=== PATIENT | male | born 1970 | race African-American/Black ===

== ENCOUNTER 2024-03-22 09:05 | Emergency (ER) | payer BC, SELFPAY ==
--- NOTE | ~2024-03-22 | XR_ITS ---
EXAMINATION: XR chest 2V DATE: 03/22/2024 09:39 INDICATION: Cough and shortness of breath TECHNIQUE: PA and lateral views of the chest were obtained. COMPARISON: None FINDINGS: Eventration of the anterior right hemidiaphragm. Mild opacities at the bilateral lower lung zones whi ch could represent atelectasis or pneumonia. No pulmonary edema, pleural effusion or pneumothorax. Th e cardiomediastinal silhouette is normal. Mild thoracic levocurvature with moderate spondylosis. IMPRESSION: 1. Mild opacities at the bilateral lung bases which could represent atelectasis or pneumonia. Reviewed, dictated and finalized at location A. [employer]
--- NOTE | 2024-03-22 09:07 | ED_ITS ---
HPI - General Adult General Chief complaint: Upper Respiratory Infection Stated complaint: chest tight,difficulty breathing @ night Time Seen by Provider: 03/22/24 09:19 Source: patient and RN notes reviewed Mode of arrival: ambulatory Limitations: no limitations History of Present Illness HPI narrative: Chief 4-year-old male presents to the [facility] with cough x2 days. Reports shortness of breath and wheezing started yesterday. Has taken Tamiflu, Tylenol. States that he did use his daughter's nebulizer machine which did help his symptoms. Patient denies any medical history or surgical history. Denies being a smoker. Onset (ago): day(s) (2) Treatments prior to arrival: other (Cold medication, Tylenol) Related Data Allergies Allergy/AdvReac Type Severity Reaction Status Date / Time No Known Allergies Allergy Verified 03/22/24 09:32 Review of Systems Review of Systems: All systems reviewed & are unremarkable except as noted in HPI and below Constitutional: Constitutional: Reports no additional constitutional complaints ENT: Reports system reviewed and no additional complaints, except as documented Cardiovascular: Cardiovascular: Reports as per HPI, Reports chest pain, Reports dyspnea and Reports orthopnea Respiratory: Respiratory: Reports as per HPI, Reports chest congestion, Reports cough, Reports excessive phlegm production, Reports dyspnea and Reports wheezing Musculoskeletal: Musculoskeletal: Reports no additional musculoskeletal complaints Integumentary/Breasts: Skin/Breast: Reports system reviewed and no additional complaints, except as docu PMFSH Past Medical History Medical History Patient denies medical problems Surgical History Surgical History No significant past surgical history Social History Social History Smoking status: Never smoker Alcohol intake: current Alcohol use details: Occasional 1-2 drinks a week Comments At the time of my signature, I reviewed and agree with the nursing past medical, surgical, social, and family history. There is no relevant family history pertinent to the patient complaint. Exam Const: General: cooperative, healthy appearing, comfortable, no acute distress, well developed, alert and well nourished Nutritional Appearance: well nourished Orientation/consciousness: patient oriented x3 Limitations: no limitations HENMT: Head: normal to inspection Ears: hearing grossly normal bilaterally, external ears normal, TM's normal bilaterally, EAC's normal, mastoids normal and no periauricular adenopathy Mouth: Yes Normal oral and palatal mucosa present, Yes lip normal, Yes tongue normal and Yes moist mucous membranes Throat: posterior oropharynx normal, tonsils normal, uvula midline, postnasal dr ainage and no uvular edema Eyes: General: appearance normal, both eyes and all related structures Alignment and Position: alignment normal Neck: Neck: normal visual inspection, full ROM, no lymphadenopathy and no meningeal signs Chest: Chest palpation & inspection: normal inspection of the chest Resp: Effort & Inspection: normal respiratory effort and able to speak in complete sentences Auscultation: crackles diffuse, no rales, no rhonchi and wheezes expiratory wheezes, inspiratory wheezes and throughout Cardio: Rate: regular rate Skin: General skin exam: normal color and no rashes or lesions noted Neuro: General: patient oriented x3, gait normal, moves all extremities and no meningeal signs Cognition (Neuro): normal cognition Speech: normal speech Gait exam (Neuro): Normal gait present Extrem: General: normal to inspection, full ROM, capillary refill normal and normal gait Psych: Appearance: grossly normal and well kempt Mental Status: mental status grossly normal Speech and movement: Normal speech and movement present and Clear speech present Affect: normal affect Attitude: cooperative Course Course Level of Care: Express Care Visit Vital Signs Vital signs: Vital Signs Temperature 97.6 F 03/22/24 09:19 Pulse Rate 70 03/22/24 09:19 Respiratory Rate 20 03/22/24 09:19 Blood Pressure 154/99 H 03/22/24 09:19 Pulse Oximetry 100 03/22/24 09:19 Oxygen Delivery Room Air 03/22/24 09:19 Temperature 97.6 F 03/22/24 09:19 Pulse Rate 70 03/22/24 09:19 Respiratory Rate 20 03/22/24 09:19 Blood Pressure 154/99 H 03/22/24 09:19 Pulse Oximetry 100 03/22/24 09:19 Oxygen Delivery Room Air 03/22/24 09:19 Reviewed Medical Decision Making MDM Narrative Medical decision making narrative: Patient sitting comfortably in exam room. Nontoxic, vitals stable. Patient in no acute distress Patient presents for 2 day history of cough, shortness of breath. Reports wheezing, chest tightness with coughing as well as some shortness of breath. Patient denies any significant medical history. Patient on arrival has cough, shortness of breath, wheezing, rhonchi hoarseness. Breathing treatment was given to patient. Patient's lungs mostly clear to auscultation except for minor rhonchi in the lower lobes. Patient is appropriate for outpatient treatment of pneumonia with antibiotics. Close follow-up. Discussed in great detail with patient signs and symptoms to the emergency room which he verbalized understanding Discharge instructions reviewed with patient, as well as provided in writing per nursing staff. The instructions also include specific and strict return/GO TO THE ER as well as f/u information. All questions have been answered, and the patient deny any further questions with discharge and discharge plan. Some parts of this dictation were generated by voice recognition software and may contain typographical and/or grammatical inaccuracies. Differential Diagnosis Differential Diagnosis: Bronchitis pneumonia, flu, COVID Medical Records Medical records reviewed: Yes I reviewed the external patient's medical records. Vital Signs Vital Signs: Vital Signs Temperature 97.6 F 03/22/24 09:19 Pulse Rate 70 03/22/24 09:19 Respiratory Rate 20 03/22/24 09:19 Blood Pressure 154/99 H 03/22/24 09:19 Pulse Oximetry 100 03/22/24 09:19 Oxygen Delivery Room Air 03/22/24 09:19 Temperature 97.6 F 03/22/24 09:19 Pulse Rate 70 03/22/24 09:19 Respiratory Rate 20 03/22/24 09:19 Blood Pressure 154/99 H 03/22/24 09:19 Pulse Oximetry 100 03/22/24 09:19 Oxygen Delivery Room Air 03/22/24 09:19 Reviewed Lab Data Lab results reviewed: Yes I reviewed the patient's lab results. Labs: Lab Results 03/22/24 Range/Units 09:30 POC Influenza A Ag Negative (Negative) POC Influenza B Ag Negative (Negative) POC SARS CoV-2 Ag Negative (Negative) Reviewed Imaging Data Radiologist's impression: EXAMINATION: XR chest 2V DATE: 03/22/2024 09:39 INDICATION: Cough and shortness of breath TECHNIQUE: PA and lateral views of the chest were obtained. COMPARISON: None FINDINGS: Eventration of the anterior right hemidiaphragm. Mild opacities at the bilateral lower lung zones which could represent atelectasis or pneumonia. No pulmonary edema, pleural effusion or pneumothorax. The cardiomediastinal silhouette is normal. Mild thoracic levocurvature with moderate spondylosis. IMPRESSION: 1. Mild opacities at the bilateral lung bases which could represent atelectasis or pneumonia. Critical Care Time Critical Care Time Critical Care Time: No Discharge Plan Discharge Clinical Impression: Pneumonia Qualifiers: Pneumonia type: due to unspecified organism Laterality: bilateral Lung location: lower lobe of lung Qualified Code(s): J18.9 - Pneumonia, unspecified organism Patient Disposition: Home, Self-Care Condition: Stable Instructions: Antibiotic Form, Pneumonia (ED) Additional Instructions: You have been diagnosed with pneumonia. Your flu and COVID test were negative in clinic. It is important that you take 10 deep breaths every hour while awake. Is important to cough up all of the mucus. Using that inhaler can help with the wheezing and opening up your airways. Taking antibiotics are extremely important to help with your infection. While on antibiotics it is important take a probiotic or eat yogurt a day. Today your blood pressure was 154/99. Please follow-up with your primary care provider within the next 2 weeks to have this rechecked. Untreated or undertreated blood pressure can lead to more serious health issues If you develop new or worsening symptoms such as chest pain, significant shortness of breath or fevers please proceed to the nearest emergency room Patient Language: Czech Prescriptions: New albuterol sulfate 90 mcg/actuation HFA aerosol inhaler 2 puff inhalation QID PRN (Reason: shortness of breath or wheezing) Qty: 6.7 0RF amoxicillin-pot clavulanate 875-125 mg tablet 1 tablet PO Q12H Qty: 20 0RF (DME) Aerochamber MV Spacer See Rx Instructions .Route Qty: 1 0RF Rx Instructions: As directed azithromycin 250 mg tablet See Rx Instructions PO .COMPLEX Qty: 6 0RF Rx Instructions: take 500 mg today (day 1), then 250 mg for 4 days (days 2-5) Follow-up/Referrals: PHYSICIAN NOT ON STAFF,NONSTAFF [Primary Care Provider] - Stand Alone Forms: Work/School Release IP Time of Disposition: 10:09
[2024-03-22 09:19] VITALS: BP 154/99; PULSE 70; RESP 20; TEMP 36.4; O2SAT 100
[2024-03-22] MEDS: IPRATROPIUM 0.5 MG/ALBUTEROL SULFATE 2.5 MG AMPUL.NEB 3 ML INHALATION (09:45)
[2024-03-22 09:50] LABS: EDCOVIDSCREEN Negative (Negative); EDINFLUASCREEN Negative (Negative); EDINFLUBSCREEN Negative (Negative)
== END 2024-03-22 10:15 | disposition home or self-care (01) ==
PROVIDERS: Emergency Provider Nurse Practitioner
DX: J18.9 Pneumonia, unspecified organism (principal); Z20.822 Contact with and (suspected) exposure to COVID-19
CPT/HCPCS: 71046; 87426; 87804; 99203; G0463